=== PATIENT | female | born 1955 ===

== ENCOUNTER 2017-03-25 04:23 | Emergency (ER) | payer OTHER ==
[2017-03-25 04:23] VITALS: BMI 47.0
[2017-03-25 04:33] VITALS: PULSE 77; O2SAT 98
[2017-03-25] MEDS ORDERED: diaZEpam 10 mg/2 ml Inj IVP ONE (05:34)
--- NOTE | 2017-03-25 05:40 | C.PDOC ---
History Of Present Illness 61 year old female who presents to the ER with an acute exacerbation of her chronic left neck pain that radiates to the center of her chest and left side of her face for the past few days. Patient states she has had this chronic pain intermittently for the past 8 years after she sustained trauma to the back of the head at work. Patient has been evaluated by a neurologist and given medication; however, symptoms persist intermittently. Patient was recently seen by a project drilling engineer and had a stress test done that was negative for abnormalities. Patient states her pain is the same as previous exacerbations. Denies fever, headache, dizziness, palpitations, SOB, nausea, vomiting, abdominal pain, weakness, or numbness. Time Seen by Provider: 03/25/17 04:34 Chief Complaint (Nursing): Headache History Per: Patient History/Exam Limitations: no limitations Onset/Duration Of Symptoms: Days Current Symptoms Are (Timing): Still Present Preceeding Symptoms: Other (Chronic pain) Associated Symptoms: denies: Photophobia, Blurred Vision, Nausea, Vomiting, Extremity Weakness Recent travel outside of the [place]: No Past Medical History Reviewed: Historical Data, Nursing Documentation, Vital Signs Vital Signs: Last Vital Signs Temp Pulse 77 03/25/17 04:31 Resp 14 03/25/17 04:31 BP 157/73 H 03/25/17 04:31 Pulse Ox 98 03/25/17 06:17 - Medical History PMH: Anxiety, Arthritis, Asthma, Back Problems, Diverticulitis, HTN, Hyperlipidemia Surgical History: No Surg Hx Family History: States: Unknown Family Hx - Social History Hx Tobacco Use: No Hx Alcohol Use: No Hx Substance Use: No - Immunization History Hx Tetanus Toxoid Vaccination: No Hx Influenza Vaccination: No Hx Pneumococcal Vaccination: No Review Of Systems Except As Marked, All Systems Reviewed And Found Negative. Constitutional: Negative for: Fever, Chills Gastrointestinal: Negative for: Nausea, Vomiting, Abdominal Pain Musculoskeletal: Positive for: Neck Pain Neurological: Negative for: Weakness, Numbness, Headache, Dizziness Physical Exam - Physical Exam Appears: Well, Non-toxic, Other (Anxious in mild painful distress) Skin: Normal Color, Warm, Dry Head: Atraumatic, Normacephalic Eye(s): bilateral: Normal Inspection, PERRL, EOMI Oral Mucosa: Moist Throat: Normal Neck: Normal, Normal ROM, No Midline Cervical Tenderness, Paracervical Tenderness (Point tenderness to the left paracervical area), Supple Lymphatic: No Adenopathy Chest: Symmetrical, Tenderness (Mild tenderness to the midsternum) Cardiovascular: Rhythm Regular, No Murmur Respiratory: Normal Breath Sounds, No Rales, No Rhonchi, No Wheezing Gastrointestinal/Abdominal: Soft, No Tenderness, No Distention, No Guarding, No Rebound Back: Normal Inspection, No Vertebral Tenderness, No Paraspinal Tenderness Extremity: Normal ROM, No Tenderness, No Swelling Pulses: Left Radial: Normal, Right Radial: Normal Neurological/Psych: Oriented x3, Normal Speech, Normal Cognition, Normal Cranial Nerves, Normal Motor, Normal Sensation ED Course And Treatment - Laboratory Results Result Diagrams: 03/25/17 05:52 03/25/17 05:52 O2 Sat by Pulse Oximetry: 98 (Room air) Pulse Ox Interpretation: Normal Medical Decision Making Medical Decision Makin61 year old female who presents to the ER with an acute exacerbation of her chronic left neck pain that radiates to the center of her chest and left side of her face. Patient states she has had this chronic pain intermittently for the past 8 years after sustained a trauma to the back of the head at work. Prior records reviewed and it was found that she was seen in the ED in 08/2015 and 11/2013 for similar complaints. Plan: * EKG * Blood work * CXR * Cervical spine x-ray * Valium IV EKG : NSR at 65 bpm, (-) acute ST changes, as read by JORDYN. CXR : NAD, as read by JORDYN XR C spine : +djd, +spur formation to the anterior C4-C5-C6, as read by PA Patient offered morphine 2 mg IV for pain, but she states that she wound rather not take it at this time. Labs reviewed and are wnl, trop is negative. On re- evaluation, pt reports feeling much improved. Reports improvement of neck pain. Denies any headache, dizziness, CP or SOB. Diagnostic results d/w the pt in great detail. Pt states that she will f/u with her pmd and wants no Rx for any medications for her neck pain. Pt advised to return to the ER at any time for any new or worsening symptoms. Otherwise advised to f/u with pmd in 1-2 days without fail for re-evaluation. Pt verbalize understanding of d/c instructions and were given the opportunity to ask questions. Disposition - Disposition Disposition: HOME/ ROUTINE Disposition Time: 06:37 Condition: STABLE Additional Instructions: Follow up with your pmd in 2 days for re-evaluation. Return to the ER at any time for any new or worsening symptoms. Instructions: Cervical Radiculopathy (ED) Forms: [employer] (Portuguese), Work Excuse Print Language: FAROESE - Clinical Impression Clinical Impression: Neck pain, Cervical radiculopathy - PA / QC TECH / Resident Statement MD/DO has reviewed & agrees with the documentation as recorded. - Scribe Statement The provider has reviewed the documentation as recorded by the Scribe Alexandru Gilmore All medical record entries made by the Isabell were at my direction and personally dictated by me. I have reviewed the chart and agree that the record accurately reflects my personal performance of the history, physical exam, medical decision making, and the department course for this patient. I have also personally directed, reviewed, and agree with the discharge instructions and disposition.
[2017-03-25 05:54] LABS: BASO % 0.5 % (0.0-2.0); EOS # 0.2 K/uL (0.0-0.7); EOS % 2.7 % (0.0-4.0); HEMATOCRIT 41.2 % (34.0-47.0); LYMPH # 2.4 K/uL (1.0-4.3); LYMPH % 41.8 % (20.0-40.0); MEAN CELL VOLUME 92.6 fL (81.0-99.0); MEAN CORPUSCULAR HEMOGLOBIN 31.3 pg (27.0-31.0); MEAN CORPUSCULAR HGB CONC 33.8 g/dL (33.0-37.0); MEAN PLATELET VOLUME 7.4 fL (7.2-11.7); MONO # 0.5 K/uL (0.0-0.8); MONO % 7.8 % (0.0-10.0); NRBC % 0.1 % (0.0-2.0); RED CELL DISTRIBUTION WIDTH 14.2 % (11.5-14.5); WHITE BLOOD COUNT 5.8 K/uL (4.8-10.8)
[2017-03-25] MEDS ORDERED: Morphine 4 MG/ML VIAL ONE (05:57)
[2017-03-25] MEDS ORDERED: diaZEpam 10 mg/2 ml Inj ONE (05:58)
[2017-03-25 06:05] LABS: CHLORIDE 104 mmol/L (98-107)
[2017-03-25 06:06] LABS: POTASSIUM 4.1 mmol/L (3.6-5.2); SODIUM 141 mmol/L (132-148)
[2017-03-25 06:08] LABS: ALB/GLOB RATIO 1.1 (1.0-2.1); AST/SGOT 25 U/L (14-36); BILIRUBIN,TOTAL 0.7 mg/dL (0.2-1.3); CARBON DIOXIDE 24 mmol/L (22-30); GFR AFRICAN-AMERICAN > 60; TOTAL PROTEIN 7.5 g/dL (6.3-8.3)
[2017-03-25 06:09] LABS: ALKALINE PHOSPHATASE 153 U/L (38-126); ALT/SGPT 27 U/L (9-52); BLOOD UREA NITROGEN 12 mg/dL (7-17); CALCIUM 8.7 mg/dl (8.6-10.4); GLUCOSE,RANDOM 104 mg/dL (65-105)
[2017-03-25 06:57] VITALS: BP 140/82; RESP 16; TEMP 98
--- NOTE | 2017-03-25 10:23 | RAD ---
HISTORY: SOB COMPARISON: Chest x-ray performed 08/27/15 TECHNIQUE: Chest PA and lateral FINDINGS: LUNGS: Biapical pleural thickening. No focal consolidation. Please note that chest x-ray has limited sensitivity for the detection of pulmonary masses. PLEURA: No significant pleural effusion identified. No definite pneumothorax . CARDIOVASCULAR: Heart size appears within normal limits. Atherosclerotic calcifications of the aorta. OSSEOUS STRUCTURES: Degenerative changes of the spine. VISUALIZED UPPER ABDOMEN: Unremarkable. OTHER FINDINGS: None. IMPRESSION: Biapical pleural thickening.
--- NOTE | 2017-03-25 11:18 | RAD ---
PROCEDURE: Cervical Spine Radiographs. HISTORY: Pain. COMPARISON: None. FINDINGS: BONES: Cervical lordotic straightening No fracture. Dens Intact. Apparent developmental variant fusion of the 2nd and 3rd posterior elements. C3-4 apophyseal joint hypertrophy. Anterior spondylosis C4-C5 and C6. C5-6 and C6-7 disc space narrowing hypertrophic changes about each lateral mass with the C2 articulation. No offset suggested. DISC SPACES: Normal. SOFT TISSUES: Normal. No prevertebral soft tissue swelling. OTHER FINDINGS: None. IMPRESSION: Cervical spondylosis. No fracture
--- NOTE | 2017-03-26 19:27 | CARD ---
APPROVED REPORT EKG Measurement Heart [id number] <Conclusion> Normal sinus rhythm Normal ECG
== END 2017-03-25 06:56 | disposition home or self-care (01) ==
LOC: C.ER 04:23
DX: M54.12 Radiculopathy, cervical region (principal); M54.2 Cervicalgia
CPT/HCPCS: 71020; 72040; 80053; 84484; 85025; 93005; 96374; 99284; J3360

== ENCOUNTER 2017-10-24 09:38 | Observation (INO) | payer OTHER ==
[2017-10-24 09:39] VITALS: BMI 47.0
--- NOTE | 2017-10-24 10:35 | C.PDOC ---
History Of Present Illness 62 yr old female with PMHx of CHF, CVA, HTN and hyperlipidemia, presents to the ER with complaints of left upper chest pain for the past 1 week. Patient states for the past 3 days the pain has been radiating to the left arm and has been experiencing chills, diaphoresis and numbness in the left arm. 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 Patient reports she took aspirin last night for the pain but had no relief. Patient describes the pain as pressure like and sharp at times. Denies trauma, fever, palpitations, SOB, nausea, vomiting or weakness. Time Seen by Provider: 10/24/17 10:11 Chief Complaint (Nursing): Chest Pain History Per: Patient History/Exam Limitations: no limitations Onset/Duration Of Symptoms: Persistent (1 week) Current Symptoms Are (Timing): Still Present Quality: Sharp, Pressure Associated Symptoms: Diaphoresis. denies: Nausea Past Medical History Reviewed: Historical Data, Nursing Documentation, Vital Signs Vital Signs: Last Vital Signs Temp 98.3 F 10/24/17 10:25 Pulse 73 10/24/17 10:25 Resp 18 10/24/17 10:25 BP 138/65 10/24/17 10:25 Pulse Ox 100 10/24/17 13:44 - Medical History PMH: Anxiety, Arthritis, Asthma, Back Problems, Diverticulitis, HTN, Hyperlipidemia Family History: States: No Known Family Hx - Social History Hx Tobacco Use: No Hx Alcohol Use: No Hx Substance Use: No - Immunization History Hx Tetanus Toxoid Vaccination: No Hx Influenza Vaccination: No Hx Pneumococcal Vaccination: No Review Of Systems Except As Marked, All Systems Reviewed And Found Negative. Constitutional: Positive for: Other (+ diaphoresis). Negative for: Fever Cardiovascular: Positive for: Chest Pain (left upper). Negative for: Palpitations Respiratory: Negative for: Shortness of Breath Gastrointestinal: Negative for: Nausea, Vomiting Musculoskeletal: Positive for: Arm Pain (radiating pain to the left arm with numbness) Neurological: Negative for: Weakness Physical Exam - Physical Exam Appears: Non-toxic, In Acute Distress (moderate) Skin: Warm, Dry Eye(s): bilateral: Normal Inspection, PERRL, EOMI Oral Mucosa: Moist Neck: Normal, Normal ROM, Supple, Other (no carotid brewery) Chest: Symmetrical Cardiovascular: Rhythm Regular, No Murmur Respiratory: Normal Breath Sounds, No Rales, No Rhonchi, No Stridor, No Wheezing Gastrointestinal/Abdominal: Normal Exam, Soft, No Tenderness, No Guarding, No Rebound Extremity: Normal ROM, Capillary Refill (<2 secs) Neurological/Psych: Oriented x3, Normal Speech, Normal Sensation ED Course And Treatment - Laboratory Results Result Diagrams: 10/24/17 10:50 10/24/17 10:50 ECG: Interpreted By Me, Viewed By Me ECG Rhythm: Sinus Rhythm Interpretation Of ECG: Normal intervals. Normal axis. No ST/T wave abnormalities. Rate From EC (BPM) O2 Sat by Pulse Oximetry: 100 (RA) Pulse Ox Interpretation: Normal - Other Rad CXR X-Ray: Viewed By Me, Read By Radiologist Interpretation: HISTORY: chest pain. COMPARISON: Chest x-ray performed . TECHNIQUE: Chest, one view. FINDINGS: Examination limited by habitus. LUNGS: Right hilar prominence. No focal consolidation. Please note that chest x-ray has limited sensitivity for the detection of pulmonary masses. PLEURA: No significant pleural effusion identified. No definite pneumothorax . CARDIOVASCULAR: Heart size appears within normal limits. OSSEOUS STRUCTURES: Degenerative changes. VISUALIZED UPPER ABDOMEN: Mild elevation of the right hemidiaphragm. OTHER FINDINGS: None. IMPRESSION: Right hilar prominence. No focal consolidation identified. - CT Scan/US CT - Head Other Rad Studies (CT/US): Read By Radiologist, Radiology Report Reviewed CT/US Interpretation: PROCEDURE: CT HEAD WITHOUT CONTRAST. HISTORY: dizziness. COMPARISON: None available. TECHNIQUE: Axial computed tomography images were obtained through the head/brain without intravenous contrast. Radiation dose: Total exam DLP = 929.43 mGy-cm. This CT exam was performed using one or more of the following dose reduction techniques: Automated exposure control, adjustment of the mA and/or kV according to patient size, and/ or use of iterative reconstruction technique. FINDINGS: Mild streak artifact obscures evaluation of the skullbase. HEMORRHAGE: No intracranial hemorrhage. BRAIN: No mass effect or edema. 8 mm rounded hypodensity at the level the left basal ganglia. The king-white matter differentiation appears otherwise unremarkable. Please note that MRI with diffusion imaging is more sensitive in the detection of acute ischemic event. VENTRICLES: No hydrocephalus. CALVARIUM: Unremarkable. PARANASAL SINUSES: Unremarkable as visualized. No significant inflammatory changes. MASTOID AIR CELLS: Unremarkable as visualized. No inflammatory changes. OTHER FINDINGS: None. IMPRESSION: 8 mm rounded opacity in the left basal ganglia. Considerations include chronic lacunar infarct, dilated perivascular space, temporal horn diverticulum. Findings discussed with Dr. Zhang on 10/24/17 at 12:25 p.m. Medical Decision Making Medical Decision Making: IMPRESSION: Chest pain PLAN: * CT - Head * CXR * EKG * Labs * Aspirin PO NOTE: * Patient now complaints of a left sided headache. Patient is concerned due to a prior bleed. * Aspirin was not given initially because headache was not a the initial complaint. * CAT scan is ordered following the complaint. * Dr. Vasquez was attempted to reach 2x with no success. * Dr. Head was reached out and patient to be admitted for chest pain, tele- obs. Disposition Discussed With DrAdrián: Chelsea Head Counseled Patient/Family Regarding: Studies Performed, Diagnosis - Disposition Disposition: HOSPITALIZED Disposition Time: 13:43 Condition: FAIR - POA Core Measure Indicators: Chest Pain - Clinical Impression Clinical Impression: Chest pain, Headache - Scribe Statement The provider has reviewed the documentation as recorded by the Mayoibbobby Hernandez Provider Attestation: All medical record entries made by the Isabell were at my direction and personally dictated by me. I have reviewed the chart and agree that the record accurately reflects my personal performance of the history, physical exam, medical decision making, and the department course for this patient. I have also personally directed, reviewed, and agree with the discharge instructions and disposition.
[2017-10-24 10:53] LABS: BASO % 0.6 % (0.0-2.0); EOS # 0.1 K/uL (0.0-0.7); EOS % 2.6 % (0.0-4.0); HEMOGLOBIN 13.6 g/dL (11.0-16.0); LYMPH # 1.5 K/uL (1.0-4.3); LYMPH % 31.3 % (20.0-40.0); MEAN CELL VOLUME 92.6 fL (81.0-99.0); MEAN CORPUSCULAR HEMOGLOBIN 31.7 pg (27.0-31.0); MEAN CORPUSCULAR HGB CONC 34.2 g/dL (33.0-37.0); MONO # 0.3 K/uL (0.0-0.8); MONO % 6.7 % (0.0-10.0); NEUT # 2.9 K/uL (1.8-7.0); NEUT % 58.8 % (50.0-75.0); NRBC % 0.1 % (0.0-2.0); RBC 4.3 Mil/uL (3.80-5.20); RED CELL DISTRIBUTION WIDTH 13.5 % (11.5-14.5); WHITE BLOOD COUNT 4.9 K/uL (4.8-10.8)
--- NOTE | 2017-10-24 10:54 | RAD ---
HISTORY: chest pain COMPARISON: Chest x-ray performed 03/25/17 TECHNIQUE: Chest, one view. FINDINGS: Examination limited by habitus. LUNGS: Right hilar prominence. No focal consolidation. Please note that chest x-ray has limited sensitivity for the detection of pulmonary masses. PLEURA: No significant pleural effusion identified. No definite pneumothorax . CARDIOVASCULAR: Heart size appears within normal limits. OSSEOUS STRUCTURES: Degenerative changes. VISUALIZED UPPER ABDOMEN: Mild elevation of the right hemidiaphragm. OTHER FINDINGS: None. IMPRESSION: Right hilar prominence. No focal consolidation identified.
[2017-10-24 11:09] LABS: ALB/GLOB RATIO 1.2 (1.0-2.1); ALBUMIN 3.9 g/dL (3.5-5.0); ALT/SGPT 24 U/L (9-52); AST/SGOT 28 U/L (14-36); BLOOD UREA NITROGEN 10 mg/dL (7-17); CALCIUM 8.9 mg/dl (8.6-10.4); GFR AFRICAN-AMERICAN > 60; GFR NON-AFRICAN AMERICAN > 60
[2017-10-24] MEDS ORDERED: Morphine 4 MG/ML VIAL IV STA (11:11)
[2017-10-24 11:20] LABS: B-TYPE NATRIURETIC PEPTIDE 52.9 pg/mL (0-900)
--- NOTE | 2017-10-24 12:30 | CT ---
PROCEDURE: CT HEAD WITHOUT CONTRAST. HISTORY: dizziness COMPARISON: None available. TECHNIQUE: Axial computed tomography images were obtained through the head/brain without intravenous contrast. Radiation dose: Total exam DLP = 929.43 mGy-cm. This CT exam was performed using one or more of the following dose reduction techniques: Automated exposure control, adjustment of the mA and/or kV according to patient size, and/or use of iterative reconstruction technique. FINDINGS: Mild streak artifact obscures evaluation of the skullbase. HEMORRHAGE: No intracranial hemorrhage. BRAIN: No mass effect or edema. 8 mm rounded hypodensity at the level the left basal ganglia. The king-white matter differentiation appears otherwise unremarkable. Please note that MRI with diffusion imaging is more sensitive in the detection of acute ischemic event. VENTRICLES: No hydrocephalus. CALVARIUM: Unremarkable. PARANASAL SINUSES: Unremarkable as visualized. No significant inflammatory changes. MASTOID AIR CELLS: Unremarkable as visualized. No inflammatory changes. OTHER FINDINGS: None. IMPRESSION: 8 mm rounded opacity in the left basal ganglia. Considerations include chronic lacunar infarct, dilated perivascular space, temporal horn diverticulum. Findings discussed with Dr. Zhang on 10/24/17 at 12:25 p.m.
--- NOTE | 2017-10-24 14:19 | CP.PCM.HP ---
History of Present Illness - History of Present Illness History of Present Illness: COMPREHENSIVE HISTORY & PHYSICAL EXAM HPI 62 yr old female with PMHx of CHF, CVA, HTN and hyperlipidemia, presents to the ER with complaints of left upper chest pain for the past 1 week. Patient states for the past 3 days the pain has been radiating to the left arm and has been experiencing chills, diaphoresis and numbness in the left arm. Patient states she has had a stress test but can't recall the results Patient reports she took aspirin last night for the pain but had no relief. Patient describes the pain as pressure like and sharp at times. Denies trauma, fever, palpitations, SOB, nausea, vomiting or weakness. PAST HIST. PERSONAL HIST: Smoking. N Alcohol. N Allergy N Travel_- . FAMILY HIST : ROS : Constitutional: Negative for weight change, chills, night sweats, fatigue and usage of assist device. Eyes: Negative for redness, swelling, itching, discharge, vision changes, blurry vision, double vision, glaucoma, cataracts, Ears: Negative for hearing loss, ringing, , tinnitus, vertigo Nose: Negative for rhinorrhea, stuffiness, sniffing, itching, postnasal drip, discoloration, nasal congestion and epistaxis. Throat: Negative for throat clearing, sore throat, hoarseness, difficulty swallowing and difficulty speaking. Respiratory: Negative for cough, , sputum production, chest tightness, wheezing, pleuritic chest pain ,daytime somnolence, chronic cough, hemoptysis, snoring at night, Cardiovascular: Negative for , Edema of legs, leg cramps, angina, claudication , , irregular heartbeat, Neurology: Negative for irritability, muscle weakness, numbness and tingling, seizures, tremors, migraines, slurred speech, syncope, memory loss, mood changes , recurrent headaches Gastrointestinal: Negative for difficulty swallowing, diarrhea, constipation, black stools, rectal bleeding, nausea, flatulence, reflux, poor appetite, changes in bowel habits, abdominal pain Genitourinary: Negative for frequent urination, hematuria, discharge, incontinence, urinary retention, frequent UTI, Psychiatric: Negative for depression, anxiety/panic, suicidal tendencies, Musculoskeletal: Negative for swollen joints, back pain, , neck pain, morning stiffness of joints, . Skin: Negative for rash, ulcers, itching, dry skin and pigmented lesions. P/E: Constitutional: Appears stated age and in no apparent distress. Head: Normocephalic. Ears: External ear canals patent without inflammation. Tympanic membranes intact with normal light reflex and landmark. Eyes: Pupils are central, bilaterally equal, symmetrical and reacts to light with normal movements and no icterus or pallor. Nose: External nares are patent. Mucosa is pink Mouth-Throat: Good general appearance and condition. No post-pharyngeal/oropharyngeal erythema and tonsillar hypertrophy. Good dental hygiene. Neck-Lymphatic: Neck is supple with normal ROM, no thyromegaly, lymph nodes or masses. JVD is normal with no carotid bruit. Lungs: Clear to percussion and auscultation with bilateral normal air entry. Cardiovascular: S1 and S2 are normal with no murmurs, gallops and rub. GI Exam: No hepatomegaly. Abdomen is soft and non-tender. No Organomegaly , masses or hernias are evident and bowel sounds are normal and active. Neurology: Higher function and all cranial nerves intact, with no gross motor or sensory deficit. Superficial and deep reflexes are normal with downwards planters. No cerebellar deficit with normal gait. Musculoskeletal: No tender spots with normal curvature of the spine with no swelling or restricted ROM of the small and large joints. Extremities: Homans sign absent. Intact pulses with no pitting edema, calf tenderness or skin color changes. Skin: No rash, eruptions or abnormal skin pigmentation LAB/RADIOLOGY: ASSESMENT : UNSTABLE ANGINA /CAD HTN HYPERLIPIDEMIA PUD PLAN: SEE ORDERS Present on Admission - Present on Admission Any Indicators Present on Admission: No Past Patient History - Infectious Disease Hx of Infectious Diseases: None - Past Medical History & Family History Past Medical History?: Yes - Past Social History Smoking Status: Former Smoker - CARDIAC Hx Hypertension: Yes - PULMONARY Hx Asthma: Yes - NEUROLOGICAL Hx Neurological Disorder: No - HEENT Hx HEENT Problems: No - RENAL Hx Chronic Kidney Disease: No - ENDOCRINE/METABOLIC Hx Endocrine Disorders: No - HEMATOLOGICAL/ONCOLOGICAL Hx Blood Disorders: No - INTEGUMENTARY Hx Dermatological Problems: No - MUSCULOSKELETAL/RHEUMATOLOGICAL Hx Arthritis: Yes - GASTROINTESTINAL Hx Diverticulitis: Yes - GENITOURINARY/GYNECOLOGICAL Hx Genitourinary Disorders: No - PSYCHIATRIC Hx Anxiety: Yes Hx Substance Use: No - SURGICAL HISTORY Hx Surgeries: Yes Hx Cardiac Catheterization: Yes Other/Comment: CERVICAL BX W/POLYPECTOMY - ANESTHESIA Hx Anesthesia: Yes Hx Anesthesia Reactions: No Hx Malignant Hyperthermia: No Meds Allergies/Adverse Reactions: Allergies Allergy/AdvReac Type Severity Reaction Status Date / Time No Known Allergies Allergy Verified 10/24/17 09:59 Results - Vital Signs Recent Vital Signs: Last Vital Signs Temp 98.3 F 10/24/17 10:25 Pulse 73 10/24/17 10:25 Resp 18 10/24/17 10:25 BP 138/65 10/24/17 10:25 Pulse Ox 100 10/24/17 13:44 - Labs Result Diagrams: 10/24/17 10:50 10/24/17 10:50 Labs: Laboratory Results - last 24 hr 10/24/17 10/24/17 10/24/17 10:22 10:50 10:50 WBC 4.9 RBC 4.30 Hgb 13.6 Hct 39.8 MCV 92.6 MCH 31.7 H MCHC 34.2 RDW 13.5 Plt Count 272 MPV 7.0 L Neut % (Auto) 58.8 Lymph % (Auto) 31.3 [place] % (Auto) 6.7 Eos % (Auto) 2.6 Baso % (Auto) 0.6 Neut # (Auto) 2.9 Lymph # (Auto) 1.5 [place] # (Auto) 0.3 Eos # (Auto) 0.1 Baso # (Auto) 0.0 Sodium 141 Potassium 4.3 Chloride 103 Carbon Dioxide 27 Anion Gap 15 BUN 10 Creatinine 0.7 Est GFR ( Amer) > 60 Est GFR (Non-Af Amer) > 60 POC Glucose (mg/dL) 92 Random Glucose 103 Calcium 8.9 Total Bilirubin 0.7 AST 28 ALT 24 Alkaline Phosphatase 142 H Troponin I < 0.0120 NT-Pro-B Natriuret Pep 52.9 Total Protein 7.0 Albumin 3.9 Globulin 3.1 Albumin/Globulin Ratio 1.2
[2017-10-24 17:30] LABS: CK-MB 0.55 ng/mL (0.0-3.38)
[2017-10-24 20:46] VITALS: RESP 20
[2017-10-24] MEDS: Enoxaparin 30 mg Syringe SC SCH (22:09)
[2017-10-24 22:38] LABS: CK-MB 0.44 ng/mL (0.0-3.38)
[2017-10-25 06:41] LABS: CK-MB 0.54 ng/mL (0.0-3.38)
[2017-10-25] MEDS: Enoxaparin 30 mg Syringe SC SCH ×2 (09:55→21:31)
--- NOTE | 2017-10-25 14:16 | CP.PCM.PN ---
Subjective - Date & Time of Evaluation Date of Evaluation: 10/25/17 Time of Evaluation: 14:15 - Subjective Subjective: CHIEF COMPLAINTS TODAY : NO FURTHER CP 2 SETS OF TNI NEG ROS. HEENT : N. Resp : No cough, wheezing ,pleuritic CP ,or hemoptysis Cardio : No anginal CP, PND, orthopnea, palpitation GI : No abd.pain, n/v ,diarrhea or GI bleeding . WOOD[employer] R[employer]ER : No headache, vertigo, focal deficit. Musculoskel : No joint swelling , Derm : No rash Psych : Normal affect. Ext : No swelling ,calf pain PE. Pt. is alert awake in no distress. V.S As noted in the chart Head ,ear nose,throat and eyes : Normal. Neck : Supple with normal carotids. Lungs: Clear air entry. Heart : S1 & S2 normal with S4. No murmur. Abd : Soft non tender with normal bowel sounds. Neuro : Moves all ext. with no localized deficit. Ext : No edema with intact pulses.Non tender calves Derm : No rashes or decubitus ulcer. LABS/RADIOLOGY: ASSESSMENT/PLAN : F/U TNI/ECHO D/W PT Objective - Vital Signs/Intake and Output Vital Signs (last 24 hours): Temp Pulse Resp BP Pulse Ox 97.8 F 64 20 139/76 99 10/25/17 07:00 10/25/17 07:00 10/25/17 07:00 10/25/17 07:00 10/25/17 07:00 - Medications Medications: Current Medications Aspirin (Ecotrin) 81 mg PO DAILY [facility] Last Admin: 10/25/17 09:54 Dose: 81 mg Enoxaparin Sodium (Lovenox) 30 mg SC Q12 [facility] Last Admin: 10/25/17 09:55 Dose: 30 mg Ergocalciferol (Drisdol 50,000 Intl Units Cap) 1 cap PO QWK [facility] Hydrochlorothiazide (Microzide) 12.5 mg PO DAILY [facility] Last Admin: 10/25/17 09:54 Dose: 12.5 mg Losartan Potassium (Cozaar) 100 mg PO DAILY [facility] Last Admin: 10/25/17 09:54 Dose: 100 mg - Labs Labs: 10/24/17 10:50 10/24/17 10:50
[2017-10-26 01:07] VITALS: PULSE 77
[2017-10-26 08:48] VITALS: BP 120/84; TEMP 97.9; O2SAT 98
[2017-10-26] MEDS: Enoxaparin 30 mg Syringe SC SCH (09:35)
--- NOTE | 2017-10-26 15:45 | CP.PCM.DIS ---
Provider - Provider Date of Admission: 10/24/17 13:42 Attending physician: Chelsea Head MD Time Spent in preparation of Discharge (in minutes): 30 Hospital Course - Lab Results Lab Results: Most Recent Lab Values WBC 4.9 K/uL (4.8-10.8) 10/24/17 10:50 RBC 4.30 Mil/uL (3.80-5.20) 10/24/17 10:50 Hgb 13.6 g/dL (11.0-16.0) 10/24/17 10:50 Hct 39.8 % (34.0-47.0) 10/24/17 10:50 MCV 92.6 fL (81.0-99.0) 10/24/17 10:50 MCH 31.7 pg (27.0-31.0) H 10/24/17 10:50 MCHC 34.2 g/dL (33.0-37.0) 10/24/17 10:50 RDW 13.5 % (11.5-14.5) 10/24/17 10:50 Plt Count 272 K/uL (130-400) 10/24/17 10:50 MPV 7.0 fL (7.2-11.7) L 10/24/17 10:50 Neut % (Auto) 58.8 % (50.0-75.0) 10/24/17 10:50 Lymph % (Auto) 31.3 % (20.0-40.0) 10/24/17 10:50 [place] % (Auto) 6.7 % (0.0-10.0) 10/24/17 10:50 Eos % (Auto) 2.6 % (0.0-4.0) 10/24/17 10:50 Baso % (Auto) 0.6 % (0.0-2.0) 10/24/17 10:50 Neut # (Auto) 2.9 K/uL (1.8-7.0) 10/24/17 10:50 Lymph # (Auto) 1.5 K/uL (1.0-4.3) 10/24/17 10:50 [place] # (Auto) 0.3 K/uL (0.0-0.8) 10/24/17 10:50 Eos # (Auto) 0.1 K/uL (0.0-0.7) 10/24/17 10:50 Baso # (Auto) 0.0 K/uL (0.0-0.2) 10/24/17 10:50 Sodium 141 mmol/L (132-148) 10/24/17 10:50 Potassium 4.3 mmol/L (3.6-5.2) 10/24/17 10:50 Chloride 103 mmol/L (98-107) 10/24/17 10:50 Carbon Dioxide 27 mmol/L (22-30) 10/24/17 10:50 Anion Gap 15 (10-20) 10/24/17 10:50 BUN 10 mg/dL (7-17) 10/24/17 10:50 Creatinine 0.7 mg/dL (0.7-1.2) 10/24/17 10:50 Est GFR ( Amer) > 60 10/24/17 10:50 Est GFR (Non-Af Amer) > 60 10/24/17 10:50 POC Glucose (mg/dL) 92 mg/dL (65-110) 10/24/17 10:22 Random Glucose 103 mg/dL (65-105) 10/24/17 10:50 Calcium 8.9 mg/dl (8.6-10.4) 10/24/17 10:50 Total Bilirubin 0.7 mg/dL (0.2-1.3) 10/24/17 10:50 AST 28 U/L (14-36) 10/24/17 10:50 ALT 24 U/L (9-52) 10/24/17 10:50 Alkaline Phosphatase 142 U/L (38-126) H 10/24/17 10:50 Total Creatine Kinase 48 U/L (30-135) 10/25/17 06:04 CK-MB (Mass) 0.54 ng/mL (0.0-3.38) 10/25/17 06:04 Troponin I < 0.0120 ng/mL (0.00-0.120) 10/25/17 06:04 NT-Pro-B Natriuret Pep 52.9 pg/mL (0-900) 10/24/17 10:50 Total Protein 7.0 g/dL (6.3-8.3) 10/24/17 10:50 Albumin 3.9 g/dL (3.5-5.0) 10/24/17 10:50 Globulin 3.1 gm/dL (2.2-3.9) 10/24/17 10:50 Albumin/Globulin Ratio 1.2 (1.0-2.1) 10/24/17 10:50 - Hospital Course Hospital Course: 62 yr old female with PMHx of CHF, CVA, HTN and hyperlipidemia, presents to the ER with complaints of left upper chest pain for the past 1 week. Patient states for the past 3 days the pain has been radiating to the left arm and has been experiencing chills, diaphoresis and numbness in the left arm. Patient states she has had a stress test but can't recall the results Patient reports she took aspirin last night for the pain but had no relief. Patient describes the pain as pressure like and sharp at times. Denies trauma, fever, palpitations, SOB, nausea, vomiting or weakness. ALL 3 SETS OF TNI WERE NEG ECHO , NORMAL LV EF PT VERY ANXIOUS AND D/C HOME AND WILL HAVE OUT PT CARDIAC W/U PT WAS GIVEN MY OFFICE TEL TO CALL MON FOR APPOINTMENT Discharge Plan - Follow Up Plan Condition: FAIR Disposition: HOME/ ROUTINE Instructions: Calcium and Vitamin D, Heart Healthy Diet, Chest Pain, Anxiety, Adult (DC), Low Salt Diet, Losartan and Hydrochlorothiazide Additional Instructions: Activity as tolerated, rest in between. Continue all home meds. Call Dr. Head viet afternoon for appointment. Referrals: Chelsea Head MD [Staff Provider] - 1 Week
--- NOTE | 2017-10-27 00:16 | CARD ---
APPROVED REPORT EXAM: Two-dimensional and M-mode echocardiogram with Doppler and color Doppler. Other Information Quality : GoodRhythm : INDICATION Chest Pain RISK FACTORS Hypertension Obesity 2D DIMENSIONS IVSd1.1 (0.7-1.1cm)LVDd5.1 (3.9-5.9cm) PWd0.8 (0.7-1.1cm)LVDs3.2 (2.5-4.0cm) FS (%) 37.2 %LVEF (%)66.9 (>50%) M-Mode DIMENSIONS RVDd1.97 (2.1-3.2cm)Left Atrium (MM)3.89 (2.5-4.0cm) IVSd1.01 (0.7-1.1cm)Aortic Root2.66 (2.2-3.7cm) LVDd5.96 (4.0-5.6cm)Aortic Cusp Exc.1.89 (1.5-2.0cm) PWd0.93 (0.7-1.1cm)FS (%) 44 % LVDs3.32 (2.0-3.8cm)LVEF (%)75 (>50%) Mitral Valve MV E Jodvnaey73.1cm/sMV A Sznsaxhc97.3cm/sE/A ratio0.8 TDI E/Lateral E'0.0E/Medial E'0.0 Tricuspid Valve TR Peak Nrodsctj385sm/sTR Peak Gr.[id number] LEFT VENTRICLE The left ventricle is normal size. There is normal left ventricular wall thickness. Left ventricle systolic function is normal. The Ejection Fraction is within normal limits. There is normal LV segmental wall motion. The left ventricular diastolic function is abnormal. Transmitral Doppler flow pattern is Grade I-abnormal relaxation pattern. No left ventricle thrombus noted on this study. RIGHT VENTRICLE The right ventricle is normal size. The right ventricular systolic function is normal. ATRIA The left atrium size is normal. The right atrium size is normal. AORTIC VALVE The aortic valve is mildly sclerotic. The aortic valve is trileaflet. No aortic regurgitation is present. There is no aortic valvular stenosis. There is no aortic valvular vegetation. MITRAL VALVE Mitral annular calcification is mild. There is no evidence of mitral valve prolapse. There is no mitral valve stenosis. Mitral regurgitation is mild. TRICUSPID VALVE The tricuspid valve is normal in structure. There is mild tricuspid regurgitation. Right ventricular systolic pressure is estimated at less than 30 mmHg. There is no pulmonary hypertension. There is no tricuspid valve prolapse or vegetation. There is no tricuspid valve stenosis. PULMONIC VALVE The pulmonic valve is not well visualized. There is no pulmonic valvular regurgitation. GREAT VESSELS The aortic root is normal in size. The IVC is normal in size and collapses >50% with inspiration. PERICARDIAL EFFUSION There is no pericardial effusion. There is no pleural effusion. <Conclusion> The left ventricle is normal size. Left ventricle systolic function is normal. The Ejection Fraction is within normal limits. The left ventricular diastolic function is abnormal. Transmitral Doppler flow pattern is Grade I-abnormal relaxation pattern. The right ventricle is normal size. The right ventricular systolic function is normal. The left atrium size is normal. The right atrium size is normal. Mitral regurgitation is mild. There is mild tricuspid regurgitation.
--- NOTE | 2017-10-27 16:42 | CARD ---
APPROVED REPORT EKG Measurement Heart [id number] [place] [id number] <Conclusion> Normal sinus rhythm Normal ECG
--- NOTE | 2017-10-27 16:42 | CARD ---
APPROVED REPORT EKG Measurement Heart [id number] <Conclusion> Normal sinus rhythm Normal ECG
[2017-10-31] MEDS ORDERED: Ergocalciferol 50,000 Intl Units Cap PO SCH (10:00)
== END 2017-10-26 14:30 | disposition home or self-care (01) ==
LOC: C.ER 09:38 → C.9E 13:42 → C.6T 14:25
PROVIDERS: ADMIT Internal Medicine Cardiovascular Disease; ATTEND Internal Medicine Cardiovascular Disease
DX: I25.110 Atherosclerotic heart disease of native coronary artery with unstable angina pectoris (principal); Z86.73 Personal history of transient ischemic attack (TIA), and cerebral infarction without residual deficits; I50.9 Heart failure, unspecified; I11.0 Hypertensive heart disease with heart failure; E78.5 Hyperlipidemia, unspecified; F41.9 Anxiety disorder, unspecified; J45.909 Unspecified asthma, uncomplicated; M19.90 Unspecified osteoarthritis, unspecified site; R51 Headache; K27.9 Peptic ulcer, site unspecified, unspecified as acute or chronic, without hemorrhage or perforation; Z87.891 Personal history of nicotine dependence
CPT/HCPCS: 36415; 70450; 71045; 80053; 82948; 83880; 84484; 85025; 93306; 99285; G0378; J1650

== ENCOUNTER 2018-07-11 03:03 | Emergency (ER) | payer OTHER ==
[2018-07-11 03:05] VITALS: BMI 47.0
--- NOTE | 2018-07-11 03:20 | C.PDOC ---
History Of Present Illness 63 year old female with PMH of HTN presents to the ER with a complaint of intermittent midsternal cramping chest pain for 2 days that radiates to the right arm and headache that began tonight. Patient took ASA at 6pm and felt better. She reports trying to sleep but having trouble because of pain to arm, which worsens with movement. Additionally reports chest pain worsens when flat but denies SOB. Denies nausea, vomiting, or weakness/numbness of the extremities. Time Seen by Provider: 07/11/18 03:19 Chief Complaint (Nursing): Chest Pain History Per: Patient History/Exam Limitations: no limitations Onset/Duration Of Symptoms: Days, Intermittent Episodes Current Symptoms Are (Timing): Still Present Preceeding Symptoms: None Associated Symptoms: Other (Chest pain radiating to right arm, Chills). denies: Nausea, Vomiting Recent travel outside of the [place]: No Past Medical History Reviewed: Historical Data, Nursing Documentation, Vital Signs - Medical History PMH: Anxiety, Arthritis, Asthma, Back Problems, Diverticulitis, HTN, Hyperlipidemia Family History: States: Unknown Family Hx - Social History Hx Tobacco Use: No Hx Alcohol Use: No Hx Substance Use: No - Immunization History Hx Tetanus Toxoid Vaccination: No Hx Influenza Vaccination: No Hx Pneumococcal Vaccination: No Review Of Systems Constitutional: Positive for: Chills. Negative for: Fever Cardiovascular: Positive for: Chest Pain (Radiating to right arm) Gastrointestinal: Negative for: Nausea, Vomiting Neurological: Positive for: Headache. Negative for: Weakness, Numbness Physical Exam - Physical Exam Appears: Non-toxic, Other (anxious appearing) Skin: Normal Color, Warm, Dry Head: Atraumatic, Normacephalic Eye(s): bilateral: Normal Inspection, PERRL, EOMI Oral Mucosa: Moist Neck: Normal, No Midline Cervical Tenderness, No Paracervical Tenderness, Supple Chest: Symmetrical, No Tenderness Cardiovascular: Rhythm Regular, No Murmur Respiratory: Normal Breath Sounds, No Rales, No Rhonchi, No Wheezing Gastrointestinal/Abdominal: Soft, No Tenderness Extremity: Normal ROM (x4), No Deformity, No Swelling Neurological/Psych: Oriented x3, Normal Speech, Normal Motor, Normal Sensation Gait: Steady ED Course And Treatment - Laboratory Results Result Diagrams: 07/11/18 03:44 07/11/18 03:44 Lab Interpretation: No Acute Changes ECG: Interpreted By Me, Viewed By Me ECG Rhythm: Sinus Rhythm, PVC ECG Interpretation: No Acute Changes Rate From EC Medical Decision Making Medical Decision Making: Impression: chest pain for 2 days Plan: * EKG * CXR * Labs Progress: EKG shows sinus rhythm with PVC, no ST elevation. CXR shows perihilar prominence, no infiltrate, effusion or other abnormality. Labs shows high cholesterol, negative troponin and otherwise normal. Based on negative findings on diagnostics there is low suspicion for acute ACS. Patient remained well and in no distress. She reported no chest pain or SOB during ED evaluation. I explained results to her and provided copy. I advise she follow up with her doctor and cardiology. Instruct to continue with usual medication and Aspirin and to return to hospital if symptoms persist, develop any SOB, numbness, weakness or other concern. Disposition Counseled Patient/Family Regarding: Studies Performed, Diagnosis, Need For Followup - Disposition Disposition: HOME/ ROUTINE Disposition Time: 04:51 Condition: STABLE Additional Instructions: Amirah laboratorios muestran colesterol alto y el jono es normal. La radiografa de trax y el electrocardiograma no muestran ninguna enfermedad grave. Por favor, consulte a ontiveros mdico y cardilogo para obtener ms informacin sobre el problema. [place] ontiveros medicina habitual y aspirina diariamente. regresar al hospital si el dolor empeora, desarrolla dificultad para respirar, entumecimiento o debilidad Instructions: Chest Pain (DC) Print Language: ESTONIAN - POA Present On Arrival: None - Clinical Impression Clinical Impression: Chest discomfort - PA / CERTIFIED PARALEGAL / Resident Statement MD/DO has reviewed & agrees with the documentation as recorded. - Scribe Statement The provider has reviewed the documentation as recorded by the Scribe Alexandru Gilmore All medical record entries made by the Scribe were at my direction and personally dictated by me. I have reviewed the chart and agree that the record accurately reflects my personal performance of the history, physical exam, medical decision making, and the department course for this patient. I have also personally directed, reviewed, and agree with the discharge instructions and disposition. DENISHA Risk Score for UA/NSTEMI - DENISHA Risk Score Age > 64: NO 3 or more CAD Risk Factors: YES Known CAD (Stenosis greater than 50%): NO Aspirin use in past 7 days: YES Severe Angina: NO EKG ST changes greater than 0.5mm: NO Positive Cardiac Marker: NO DENISHA Score: 2 % risk at 14 days of: all cause mortality, new or recurrent [place], or severe recurrent ischemia requiring urgen revascularization: 8%
[2018-07-11 03:47] LABS: BASO % 0.7 % (0.0-2.0); EOS # 0.3 K/uL (0.0-0.7); EOS % 4.1 % (0.0-4.0); HEMOGLOBIN 13.6 g/dL (11.0-16.0); LYMPH # 1.8 K/uL (1.0-4.3); LYMPH % 28.8 % (20.0-40.0); MEAN CELL VOLUME 92.9 fL (81.0-99.0); MEAN CORPUSCULAR HEMOGLOBIN 30.9 pg (27.0-31.0); MEAN CORPUSCULAR HGB CONC 33.2 g/dL (33.0-37.0); MEAN PLATELET VOLUME 7.1 fL (7.2-11.7); MONO # 0.5 K/uL (0.0-0.8); MONO % 7.5 % (0.0-10.0); NEUT # 3.8 K/uL (1.8-7.0); NEUT % 58.9 % (50.0-75.0); RBC 4.4 Mil/uL (3.80-5.20); RED CELL DISTRIBUTION WIDTH 14.1 % (11.5-14.5); WHITE BLOOD COUNT 6.4 K/uL (4.8-10.8)
[2018-07-11 03:55] LABS: PROTHROMBIN TIME 11.4 SECONDS (9.7-12.2)
[2018-07-11 04:00] LABS: ALB/GLOB RATIO 1.2 (1.0-2.1); ALBUMIN 4.2 g/dL (3.5-5.0); ALT/SGPT 24 U/L (9-52); AST/SGOT 30 U/L (14-36); BLOOD UREA NITROGEN 15 mg/dL (7-17); CALCIUM 8.9 mg/dl (8.6-10.4); GFR NON-AFRICAN AMERICAN > 60; HDL CHOLESTEROL 83 mg/dL (30-70)
[2018-07-11 04:11] LABS: LDL CHOLESTEROL 110 mg/dL (0-129)
[2018-07-11 04:14] LABS: B-TYPE NATRIURETIC PEPTIDE 62.6 pg/mL (0-900); CK-MB 1.46 ng/mL (0.0-3.38)
[2018-07-11 04:26] LABS: SQUAMOUS EPITHIAL 2 /hpf (0-5); URINE BILIRUBIN NEGATIVE (NEGATIVE); URINE BLOOD NEGATIVE (NEGATIVE); URINE CLARITY Clear (Clear); URINE COLOR Yellow (YELLOW); URINE GLUCOSE (UA) NORMAL (Normal); URINE LEUKOCYTE ESTERASE NEG Leu/uL (Negative); URINE PROTEIN NEGATIVE (NEGATIVE); URINE UROBILINOGEN NORMAL mg/dL (0.2-1.0)
[2018-07-11 05:13] VITALS: TEMP 98.2
[2018-07-11 05:15] VITALS: BP 125/77; PULSE 69; RESP 18; O2SAT 97
--- NOTE | 2018-07-11 18:01 | RAD ---
Date of service: 07/11/2018 HISTORY: SOB COMPARISON: 10/24/2017 TECHNIQUE: Chest PA and lateral FINDINGS: LUNGS: No active pulmonary disease. PLEURA: No significant pleural effusion identified. No pneumothorax apparent. CARDIOVASCULAR: No aortic atherosclerotic calcification present. Normal cardiac size. No pulmonary vascular congestion. OSSEOUS STRUCTURES: No significant abnormalities. VISUALIZED UPPER ABDOMEN: Normal. OTHER FINDINGS: None. IMPRESSION: No active disease.
--- NOTE | 2018-07-13 21:22 | CARD ---
APPROVED REPORT Date of service: 07/11/2018 EKG Measurement Heart [id number] [id number] <Conclusion> Sinus rhythm with occasional premature ventricular complexes Otherwise normal ECG
== END 2018-07-11 05:21 | disposition home or self-care (01) ==
LOC: C.ER 03:03
DX: R07.89 Other chest pain (principal)

== ENCOUNTER 2018-11-25 07:24 | Day surgery (SDC) | payer OTHER ==
[2018-11-25 08:13] VITALS: PULSE 86; RESP 19; TEMP 97.8; O2SAT 97
[2018-11-25] MEDS ORDERED: Propofol 10 mg/ml Inj (20 ML) ONE (10:19)
--- NOTE | 2018-11-25 10:19 | CP.SDSHP ---
Same Day Surgery H & P - History Proposed Procedure: EGD Pre-Op Diagnosis: Epigastric pain. heartburn - Previous Medical/Surgical History Cardiac: Hypertension, ASHD/CAD Endocrine/Metabolic: Obesity Neuro: Backaches Misc: Other (Reflux esophagitis, diverticulosis, colon polyps, uterine polyps, ) - Allergies Allergies: Allergies No Known Allergies Allergy (Verified 10/24/17 09:59) - Physical Exam Vital Signs: Vital Signs 11/25/18 07:53 Temperature 97.8 F Pulse Rate 86 Respiratory 19 Rate Blood Pressure 135/77 O2 Sat by Pulse 97 Oximetry Mental Status: Alert & Oriented x3 Neuro: WNL Heart: WNL Lungs: WNL GI: WNL - Impression Impression: epigastric pain. heartburn Pt. Evaluated Today:Candidate for Anesthesia & Procedure: Yes - Date & Time Date: 11/25/18 Time: :19 Short Stay Discharge - Short Stay Discharge Admitting Diagnosis/Reason for Visit: EPIGASTRIC PAIN / HEARTBURN Disposition: HOME/ ROUTINE
[2018-11-25 11:57] VITALS: BP 119/67
== END 2018-11-25 11:57 | disposition home or self-care (01) ==
LOC: C.ENDO 07:24
PROVIDERS: ATTEND Internal Medicine Gastroenterology
DX: K20.9 Esophagitis, unspecified (principal); K29.70 Gastritis, unspecified, without bleeding; R10.13 Epigastric pain; R10.816 Epigastric abdominal tenderness; R12 Heartburn
CPT/HCPCS: 43239; 88305; 88312; 88342; J2001; J2704